=== PATIENT | male | born 1975 | race Caucasian/White ===

== ENCOUNTER → 2016-11-11 | Outpatient (CLI) | payer BC ==
[~2016-11-11] MED LIST: GADOBUTROL 10 ML VIAL IVP ONE
== END ==
LOC: FIMAGING 12:09
PROVIDERS: ATTEND Internal Medicine
DX: M54.2 Cervicalgia (principal); R20.2 Paresthesia of skin; D18.02 Hemangioma of intracranial structures
CPT/HCPCS: A9585